=== PATIENT | female | born 1990 | race Asian ===

== ENCOUNTER 2020-09-06 17:38 | Outpatient (CLI) | payer OTHER | END 2020-09-06 17:39 | disposition home or self-care (01) | LOC: COV 17:38 | PROVIDERS: ATTEND Family Medicine | DX: Z20.822 Contact with and (suspected) exposure to COVID-19 (principal) ==

== ENCOUNTER 2022-04-27 23:01 | Emergency (ER) | payer OTHER ==
--- NOTE | 2022-04-27 23:39 | ED Physician Documentation ---
PD HPI DYSPNEA - Stated complaint Stated Complaint: SOA, CHEST PAIN - Chief complaint Chief Complaint: Resp - History obtained from History obtained from: Patient - Additional information Additional information: The patient comes to the emergency department with chief complaint of dyspnea for approximately the last week and a half. She states that she is also had pain between her shoulder blades. She states that all of it seems to be getting gradually worse. The patient was recently traveling in the [facility] and got back 1 week ago. She thinks that the shortness of breath started while she was there, though she was so busy and doing some is traveling that it is hard to tell for sure. The patient states that she stopped her control approximately 1 week into her [facility] trip. She states that she has never felt ill per se-no fevers, cough, body aches, or other signs of illness. She states that prior to her trip, she was working out approximately 1 hour a day at the gym. However, upon arriving home, she noticed her exercise tolerance had significantly decreased and that she could not get through a workout without getting severely short of breath. The patient states that today, she felt as though she was going to pass out and had to cut her workout short again. The patient denies any swelling or pain in her calves. She states that even just walking around makes her feel very short of breath now. She is otherwise very healthy. No other complaints at this time. Review of Systems Ten Systems: 10 systems reviewed and negative Constitutional: reports: Reviewed and negative Eyes: reports: Reviewed and negative Ears: reports: Reviewed and negative Nose: reports: Reviewed and negative Throat: reports: Reviewed and negative Cardiac: reports: Reviewed and negative Respiratory: reports: Dyspnea GI: reports: Reviewed and negative : reports: Reviewed and negative Skin: reports: Reviewed and negative Musculoskeletal: reports: Back pain Neurologic: reports: Reviewed and negative Psychiatric: reports: Reviewed and negative Endocrine: reports: Reviewed and negative Immunocompromised: reports: Reviewed and negative PD PAST MEDICAL HISTORY - Present Medications Home Medications: Ambulatory Orders Medication Instructions Recorded Confirmed Apixaban [Eliquis] 10 mg PO BID #200 tablet 04/28/22 - Allergies Allergies/Adverse Reactions: Allergies Allergy/AdvReac Type Severity Reaction Status Date / Time amoxicillin Allergy Hives Verified 04/27/22 23:06 - Social History Does the pt smoke?: No Smoking Status: Never smoker Does the pt drink ETOH?: Yes Does the pt have substance abuse?: No - Immunizations Immunizations are current?: Yes - POLST Patient has POLST: No PD ED PE NORMAL - Vitals Vital signs reviewed: Yes - General General: Alert and oriented X 3, No acute distress, Well developed/nourished - HEENT HEENT: Atraumatic, PERRL, EOMI, Moist mucous membranes - Neck Neck: Supple, no meningeal sign - Cardiac Cardiac: No murmur, Strong equal pulses, Other (Mild tachycardia. Regular rhythm.) - Respiratory Respiratory: No respiratory distress, Clear bilaterally - Abdomen Abdomen: Soft, Non tender, Non distended - Back Back: No spinal TTP, Other (No muscular tenderness.) - Derm Derm: Normal color, Warm and dry, No rash - Extremities Extremities: No deformity, No edema, No calf tenderness / cord - Neuro Neuro: Alert and oriented X 3 - Psych Psych: Normal mood, Normal affect Results - Vitals Vitals: Vital Signs - 24 hr 04/27/22 04/27/22 04/28/22 23:07 23:25 00:00 Temperature 36.5 C Heart Rate 100 104 H 96 Respiratory 16 19 13 Rate Blood Pressure 150/100 H 141/115 H 128/94 H O2 Saturation 96 99 96 04/28/22 04/28/22 04/28/22 00:35 01:46 03:02 Temperature Heart Rate 96 87 90 Respiratory 23 14 16 Rate Blood Pressure 115/92 H 130/101 H 140/103 H O2 Saturation 94 100 100 Oxygen O2 Source Room air - EKG (time done) 2341 Rate: Rate (enter#) (99) Rhythm: NSR Martell: Normal Intervals: Normal NC QRS: Normal Ischemia: Normal ST segments, Non specific changes Compare to prior EKG: Old EKG unavailable Computer interpretation: Agree with computer - Labs Labs: Laboratory Tests 04/27/22 04/27/22 04/27/22 23:35 23:35 23:35 WBC 10.2 RBC 4.73 Hgb 11.9 L Hct 37.5 MCV 79.3 L MCH 25.2 L MCHC 31.7 L RDW 13.2 Plt Count 264 MPV 9.5 Neut # (Auto) 5.8 Lymph # (Auto) 3.5 Glades # (Auto) 0.6 Eos # (Auto) 0.3 Baso # (Auto) 0.1 Absolute Nucleated RBC 0.00 Nucleated RBC % 0.0 PT 13.3 H INR 1.2 D-Dimer 1012.9 H Sodium 141 Potassium 3.5 Chloride 104 Carbon Dioxide 26 Anion Gap 11.0 BUN 13 Creatinine 0.9 Estimated GFR (MDRD) 73 L Glucose 116 H Calcium 9.2 Total Bilirubin 0.3 AST 31 ALT 27 Alkaline Phosphatase 70 Total Protein 7.6 Albumin 4.1 Globulin 3.5 Albumin/Globulin Ratio 1.2 Lipase 37 Serum HCG, Qual Nasal Adenovirus (PCR) Nasal B. parapertussis DNA (PCR) Nasal Coronavir 229E PCR Nasal Coronavir HKU1 PCR Nasal Coronavir NL63 PCR Nasal Coronavir OC43 PCR Nasal Enterovir/Rhinovir PCR Nasal Influenza B PCR Nasal Influenza A PCR Nasal Parainfluen 1 PCR Nasal Parainfluen 2 PCR Nasal Parainfluen 3 PCR Nasal Parainfluen 4 PCR Nasal RSV (PCR) Nasal B.pertussis DNA PCR Nasal C.pneumoniae (PCR) Herve Human Metapneumo PCR Nasal M.pneumoniae (PCR) Nasal SARS-CoV-2 (PCR) 04/27/22 04/27/22 23:35 23:50 WBC RBC Hgb Hct MCV MCH MCHC RDW Plt Count MPV Neut # (Auto) Lymph # (Auto) Glades # (Auto) Eos # (Auto) Baso # (Auto) Absolute Nucleated RBC Nucleated RBC % PT INR D-Dimer Sodium Potassium Chloride Carbon Dioxide Anion Gap BUN Creatinine Estimated GFR (MDRD) Glucose Calcium Total Bilirubin AST ALT Alkaline Phosphatase Total Protein Albumin Globulin Albumin/Globulin Ratio Lipase Serum HCG, Qual NEGATIVE Nasal Adenovirus (PCR) NOT DETECTED Nasal B. parapertussis DNA (PCR) NOT DETECTED Nasal Coronavir 229E PCR NOT DETECTED Nasal Coronavir HKU1 PCR NOT DETECTED Nasal Coronavir NL63 PCR NOT DETECTED Nasal Coronavir OC43 PCR NOT DETECTED Nasal Enterovir/Rhinovir PCR NOT DETECTED Nasal Influenza B PCR NOT DETECTED Nasal Influenza A PCR NOT DETECTED Nasal Parainfluen 1 PCR NOT DETECTED Nasal Parainfluen 2 PCR NOT DETECTED Nasal Parainfluen 3 PCR NOT DETECTED Nasal Parainfluen 4 PCR NOT DETECTED Nasal RSV (PCR) NOT DETECTED Nasal B.pertussis DNA PCR NOT DETECTED Nasal C.pneumoniae (PCR) NOT DETECTED Herve Human Metapneumo PCR NOT DETECTED Nasal M.pneumoniae (PCR) NOT DETECTED Nasal SARS-CoV-2 (PCR) NOT DETECTED - Rads (name of study) CTA thorax Radiology: Final report received, EMP read indepedently, See rad report (Mul tiple pulmonary emboli involving all lobes of both lungs, segmental and subsegmental he) PD MEDICAL DECISION MAKING - ED course Complexity details: reviewed results, re-evaluated patient, considered differential, d/w patient ED course: The patient overall appeared well, but she was mildly tachycardic and I was concerned, given her history of recent cessation of control and recent long travel with onset of symptoms after at least 1 leg of long travel, that the patient may have a pulmonary embolism. She did not have any symptoms whatsoever of DVT, but also had not felt ill and had no other plausible explanation for her symptoms at this point in time. Her oxygen saturation was generally in the upper 90s, though initially upon arriving in the room, she was briefly in the upper 80s with a good waveform. However, this did resolve very quickly. Her blood pressure was actually slightly elevated. She was worked up with labs, EKG, and ultimately, CT angiogram of the chest. Labs showed a significantly elevated D-dimer over 1000. EKG showed T wave inversions in lead III And aVF. CTA of the chest showed multiple PEs scattered throughout all lobes of both lungs., Without right heart strain or dilatation of the pulmonary artery. No infiltrates or infarction were noted. I relayed this information to the patient, who was feeling fairly well at this point. Her oxygen saturation at rest in bed on room air was 98 to 100%. Her heart rate was in the low 90s. The patient was given an IV dose of heparin pulmonary embolism dosing. I did get the patient up for a walk and she was able to walk unaided to the far end of the nursing station, and back, approximately 60 feet. She appeared very comfortable doing this and was without any visible dyspnea. Her oxygen saturation did drop down to 91% after the walk but rebounded fairly quickly to 95% on room air. Her heart rate did not rise above 100. I felt the patient was stable for discharge for outpatient anticoagulation therapy and follow-up. I have had an extensive discussion with both the patient and her sister regarding this. We have discussed the importance of staying on the anticoagulation, the importance of following up as an outpatient, and the usual indications for return. Departure - Departure Disposition: 01 Home, Self Care Clinical Impression: Pulmonary embolism Qualifiers: Pulmonary embolism type: multiple subsegmental (without acute cor pulmonale) Qualified Code(s): I26.94 - Multiple subsegmental pulmonary emboli without acute cor pulmonale Condition: Stable Instructions: Embolism Pulmonary Dc Prescriptions: Apixaban [Eliquis] 10 mg PO BID #200 tablet Comments: The CT scan of your chest showed multiple pulmonary emboli that have traveled to all segments of your lungs. Fortunately, this has not caused any of your lung tissue, nor has it caused strain to the right side of your heart. Your oxygen saturation is very good at rest, and you have been able to walk in the emergency department without becoming severely winded or without your oxygen d ropping very low or your heart rate going very high. As such, you do meet criteria for treatment initiation at home. You have been given an IV dose of blood thinner here in the emergency department will need to start your oral blood thinner first thing in the morning. Your prescription has been electronically transmitted to [facility] pharmacy in [place] at your request. Please follow-up as soon as possible to establish care with a primary care physician so that you can continue to be monitored for this condition. If your symptoms significantly worsen, you should return to the emergency department immediately. Discharge Date/Time: 04/28/22 03:13
--- OUTSIDE RECORDS SUMMARY | 2022-04-27 23:42 | EXTERNAL MEDICAL SUMMARY RPT | Continuity of Care Document ---
:1990 Author Organization [facility] Address [address] [place] [address] Phone Allergies No information. Encounters No information. Functional Status No information. Immunizations No information. Medications No information. Problems No information. Procedures No information. Results/Labs test date author facility value unit interpret ation Result panel 1 (unknown) (no (unknown) (unknown) (no value) (units (unk nown) date) unknown) (unknown) (no (unknown) (unknown) Date of (units (unkno wn) date) Service: unknown) 01/26/22 (unknown) (no (unknown) (unknown) [facility] (units (unknown) date) [address] [place] [address] unknown) [place] [address] (unknown) (no (unknown) (unknown) Pulmonary (units (unkn own) date) Function Test unknown) (unknown) (no (unknown) (unknown) (no value) (units (unk nown) date) unknown) (unknown) (no (unknown) (unknown) 0359 (units (unkno wn) date) unknown) (unknown) (no (unknown) (unknown) Age/Sex: 31 / F (units (unknown) date) unknown) (unknown) (no (unknown) (unknown) : 1990 (units (unknown) date) unknown) Acct:[id number] (unknown) (no (unknown) (unknown) Date Patient (units (u nknown) date) Seen: 01/26/22 unknown) (unknown) (no (unknown) (unknown) Interpretation: (units (unknown) date) unknown) (unknown) (no (unknown) (unknown) Patient: (units (unkno wn) date) Kisha Spivey unknown) MR#: [id number] (unknown) (no (unknown) (unknown) Provider: (units (unkn own) date) Manuel Hughes MD unknown) (unknown) (no (unknown) (unknown) Pulmonary (units (unkn own) date) Function Test unknown) (unknown) (no (unknown) (unknown) Referral + (units (unk nown) date) Results unknown) (unknown) (no (unknown) (unknown) Requesting (units (unk nown) date) provider: Carlos Enrique unknown) Malachi May (unknown) (no (unknown) (unknown) Results: (units (unkno wn) date) unknown) (unknown) (no (unknown) (unknown) Signed (units (unkno wn) date) By:<Electronical unknown) ly signed by Manuel Hughes MD>01/30/22 1413 (unknown) (no (unknown) (unknown) The FEV1 was (units (u nknown) date) measured at 2.82 unknown) L which is 99% of predicted. (unknown) (no (unknown) (unknown) The FEV1/FVC (units (u nknown) date) ratio was 92 unknown) which is 109% of predicted. (unknown) (no (unknown) (unknown) The spirometry (units (unknown) date) demonstrates an unknown) FVC of 3.07 m which is 81% of predicted. (unknown) (no (unknown) (unknown) This study (units (unk nown) date) demonstrates unknown) normal forced spirometry Social History No information. Vital Signs No information.
[2022-04-27 23:45] LABS: BASOPHILS # (AUTO) 0.1 10^3/uL (0.0-0.1); BASOPHILS % (AUTO) 0.8 %; EOSINOPHILS # (AUTO) 0.3 10^3/uL (0.0-0.7); EOSINOPHILS % (AUTO) 2.9 %; HCT - HEMATOCRIT 37.5 % (37.0-47.0); HGB - HEMOGLOBIN 11.9 g/dL (12.0-16.0); LYMPHOCYTES # (AUTO) 3.5 10^3/uL (1.5-3.5); LYMPHOCYTES % (AUTO) 33.9 %; MEAN CORPUSCULAR HEMOGLOBIN 25.2 pg (27.0-31.0); MEAN CORPUSCULAR HGB CONC 31.7 g/dL (32.0-36.0); MEAN CORPUSCULAR VOLUME 79.3 fL (81.0-99.0); MEAN PLATELET VOLUME 9.5 fL (7.9-10.8); MONOCYTES # (AUTO) 0.6 10^3/uL (0.0-1.0); MONOCYTES % (AUTO) 5.6 %; NEUTROPHILS # (AUTO) 5.8 10^3/uL (1.5-6.6); NEUTROPHILS % (AUTO) 56.6 %; PLT - PLATELET COUNT 264 10^3/uL (130-450); RED BLOOD COUNT 4.73 10^6/uL (4.20-5.40); RED CELL DISTRIBUTION WIDTH 13.2 % (12.0-15.0); WHITE BLOOD COUNT 10.2 x10^3/uL (4.8-10.8)
[2022-04-27 23:59] LABS: INR 1.2 (0.8-1.2); PT - PROTHROMBIN TIME 13.3 secs (9.9-12.6)
[2022-04-28] LABS: ALBUMIN 4.1 g/dL (3.2-5.5); ALBUMIN/GLOBULIN RATIO 1.2 (1.0-2.2); BILIRUBIN,TOTAL 0.3 mg/dL (0.2-1.0); CALCIUM 9.2 mg/dL (8.5-10.3); CREATININE 0.9 mg/dL (0.4-1.0); POTASSIUM 3.5 mmol/L (3.5-5.0); TOTAL PROTEIN 7.6 g/dL (6.7-8.2)
[2022-04-28 00:05] LABS: D-DIMER 1012.9 ng/mL (200.0-255.0)
[2022-04-28 00:08] LABS: HCG,QUALITATIVE BLOOD NEGATIVE
[2022-04-28 00:50] LABS: B. PARAPERTUSSIS- RESP PCR PAN NOT DETECTED; B. PERTUSSIS- RESP PCR PANEL NOT DETECTED; C. PNEUMONIAE- RESP PCR PANEL NOT DETECTED; CORONAVIRUS 229E-RESP PCR NOT DETECTED; CORONAVIRUS HKU1-RESP PCR NOT DETECTED; CORONAVIRUS NL63-RESP PCR NOT DETECTED; CORONAVIRUS OC43-RESP PCR NOT DETECTED; HUMAN METAPNEUMOVIRUS NOT DETECTED; INFLUENZA A- RESP PCR PANEL NOT DETECTED; INFLUENZA B - RESP PCR PANEL NOT DETECTED; M. PNEUMONIAE- RESP PCR PANEL NOT DETECTED; PARAINFLUENZA VIRUS 1 NOT DETECTED; PARAINFLUENZA VIRUS 2 NOT DETECTED; PARAINFLUENZA VIRUS 3 NOT DETECTED; PARAINFLUENZA VIRUS 4 NOT DETECTED; RHINOVIRUS/ENTEROVIRUS NOT DETECTED; RSV- RESP PCR PANEL NOT DETECTED; SARS-CoV-2 -RESP PCR PANEL NOT DETECTED
--- NOTE | 2022-04-28 01:52 | CT Report ---
PROCEDURE: ANGIO CHEST W/WO INDICATIONS: back pain, tachycardia, dyspnea, travel, elev d-DM CONTRAST: IV CONTRAST: Optiray 320 ml: 100 PO CONTRAST: *NO PO CONTRAST TECHNIQUE: After the administration of intravenous contrast, 2 mm axial images were acquired from the pulmonary apices to the posterior costophrenic angles during the arterial phase. In addition, 1 mm lung kernel and 5 mm soft tissue kernel reconstructions were performed. 3-dimensional coronal oblique maximum int ensity projection (MIP) reformats, 8 mm axial MIP, and 5 mm coronal and sagittal MPR reformats were t hen performed through the thorax. For radiation dose reduction, the following was used: automated exp osure control, adjustment of mA and/or kV according to patient size. COMPARISON: None. FINDINGS: Image quality: Excellent. Pulmonary arteries: Pulmonary arteries demonstrate bilateral filling defects involving segmental and subsegmental pulmonary arteries involving all lobes. The main pulmonary artery is within normal size limits. No definite leftward deviation of the interventricular septum. Lower Neck: No lymphadenopathy by size criteria. Thyroid: Visualized thyroid demonstrates no discrete nodules. Axillae: No lymphadenopathy by size criteria. Chest Wall: Unremarkable. Bones: Visualized osseous structures demonstrate no suspicious lesions. Lungs and Airways: No acute consolidation. There is minimal dependent atelectasis. No suspicious pu lmonary nodules. The trachea and central airways are patent. Pleura: No pneumothorax or pleural effusions. Heart: Heart size is normal. No pericardial effusion. Thoracic Vessels: The aorta and pulmonary arteries are normal in size. Mediastinum and Herlinda: No lymphadenopathy by size criteria. Esophagus: No wall thickening. No hiatal hernia. Abdomen: Visualized upper abdominal solid organs appear normal in the early arterial phase of enhanc ement. IMPRESSION: 1. Bilateral pulmonary embolism demonstrated within segmental and subsegmental pulmonary arteries wit hin all lobes. No definite evidence of right heart strain. Findings discussed Dr. Whitfield on 04/28/2022 at 1:48 AM. Reviewed by: Giuseppe Ortega MD on 04/28/2022 1:51 AM PDT Approved by: Giuseppe Ortega MD on 04/28/2022 1:51 AM PDT Station ID: [id number]
[2022-04-28 03:03] VITALS: BP 140/103
== END 2022-04-28 03:13 | disposition home or self-care (01) ==
LOC: ED 23:01
DX: I26.94 Multiple subsegmental thrombotic pulmonary emboli without acute cor pulmonale (principal); Z20.822 Contact with and (suspected) exposure to COVID-19
CPT/HCPCS: 36415; 71275; 80053; 83690; 84703; 85025; 85379; 85610; 87633; 93005; 96374; 99284; Q9967

== ENCOUNTER 2022-05-11 15:01 | Outpatient (CLI) | payer OTHER ==
--- NOTE | 2022-05-11 17:53 | Ultrasound Report ---
PROCEDURE: Duplex Ext Veins Right INDICATIONS: SWELLING OF RIGHT ARM TECHNIQUE: Real-time imaging, as well as color and pulse Doppler interrogation, were performed of the lower extr emity deep veins from the inguinal ligament to the popliteal fossa. COMPARISON: CT pulmonary angiogram 04/28/2022. FINDINGS: There is nonocclusive thrombus in the subclavian vein, axillary vein, brachial vein. The superficial venous system basilic and cephalic veins are patent. The jugular vein is patent. No conspicuous DVT i n the right innominate vein. IMPRESSION: Positive exam. Nonocclusive DVT in the right upper extremity. Preliminary results were conveyed to Damien SHAW by the steam hammer operator at 1550 hours on . Reviewed by: Ori Barnhart MD on 05/11/2022 5:52 PM PDT Approved by: Ori Barnhart MD on 05/11/2022 5:52 PM PDT Station ID: [id number]
== END 2022-05-11 15:02 | disposition home or self-care (01) ==
LOC: DI 15:01
PROVIDERS: ATTEND Registered Nurse
DX: I82.621 Acute embolism and thrombosis of deep veins of right upper extremity (principal); Z86.711 Personal history of pulmonary embolism; Z79.01 Long term (current) use of anticoagulants

== ENCOUNTER 2022-05-14 20:31 | Emergency (ER) | payer OTHER ==
--- OUTSIDE RECORDS SUMMARY | 2022-05-14 20:41 | EXTERNAL MEDICAL SUMMARY RPT | Continuity of Care Document ---
:1990 Author Organization [facility] Address [address] [place] [address] Phone Care Team Providers Name Role Phone Unavailable Unavailable Unavailable Marana Security Assurance Specialist,Primary Teaching Assistant Unavailable Unavailable [facility], Referrals Unavailable Unavailable [facility], Referrals Unavailable Unavailable Allergies and Intolerances date description facility type (no date) AMOXICILLIN All (unknown) Encounters No information. Functional Status No information. Immunizations No information. Medications date description facility [id number]+0000 apixaban All [id number]+0000 apixaban All [id number]+0000 apixaban All [id number]+0000 apixaban All [id number]+0000 apixaban All [id number]+0000 apixaban All [id number]+0000 apixaban All [id number]+0000 apixaban All [id number]+0000 apixaban All [id number]+0000 apixaban All [id number]+0000 apixaban All [id number]+0000 apixaban All Problems No information. Procedures date description facility [id number] Visit Code Hold All [id number]+0000 Visit Code Hold All [id number]+0000 Visit Code Hold All Results/Labs No information. Social History date description facility [id number]+0000 Unknown if ever smoked All [id number]+0000 Unknown if ever smoked All [id number]+0000 Unknown if ever smoked All Vital Signs date measurement value units [id number]+0000 BMI BMI 20.16 kg/m2 42543264975610+0000 BP_diastolic BP_diastolic 84 mmHg 35010843301696+0000 BP_systolic BP_systolic 122 mmHg 66525448045947+0000 heart_rate heart_rate 110 /min 81852954447673+0000 height_metric height_metric 162.56 cm 57298803015482+0000 height_standard height_standard 64 in [id number]+0000 respiration_rate respiration_rate 18 /min 95890402610156+0000 temperature_metric temperature_metric 36.72 C 48443794545911+0000 temperature_standard temperature_standard 9 8.1 F 14622161495851+0000 weight_metric weight_metric 53.07 kg +0000 weight_standard weight_standard 117 lb
[2022-05-14] MEDS ORDERED: SODIUM CHLORIDE 0.9% 1,000 ML IV STA (21:10)
[2022-05-14] MEDS ORDERED: KETOROLAC 15 MG/ML VIAL IVP STA (21:10)
[2022-05-14] MEDS ORDERED: MORPHINE 2 MG/ML CARPUJECT IVP STA (21:10)
[2022-05-14 21:26] LABS: BASOPHILS # (AUTO) 0.1 10^3/uL (0.0-0.1); BASOPHILS % (AUTO) 1.1 %; EOSINOPHILS # (AUTO) 0.3 10^3/uL (0.0-0.7); EOSINOPHILS % (AUTO) 2.7 %; HCT - HEMATOCRIT 40.7 % (37.0-47.0); HGB - HEMOGLOBIN 13.3 g/dL (12.0-16.0); LYMPHOCYTES # (AUTO) 3.5 10^3/uL (1.5-3.5); LYMPHOCYTES % (AUTO) 29.4 %; MEAN CORPUSCULAR HEMOGLOBIN 25.4 pg (27.0-31.0); MEAN CORPUSCULAR HGB CONC 32.7 g/dL (32.0-36.0); MEAN CORPUSCULAR VOLUME 77.8 fL (81.0-99.0); MONOCYTES # (AUTO) 0.6 10^3/uL (0.0-1.0); MONOCYTES % (AUTO) 4.9 %; NEUTROPHILS # (AUTO) 7.2 10^3/uL (1.5-6.6); NEUTROPHILS % (AUTO) 61.7 %; PLT - PLATELET COUNT 284 10^3/uL (130-450); RED BLOOD COUNT 5.23 10^6/uL (4.20-5.40); RED CELL DISTRIBUTION WIDTH 13.8 % (12.0-15.0); WHITE BLOOD COUNT 11.7 x10^3/uL (4.8-10.8)
[2022-05-14 21:46] LABS: ALBUMIN 4.2 g/dL (3.2-5.5); ALBUMIN/GLOBULIN RATIO 1.1 (1.0-2.2); BILIRUBIN,TOTAL 0.4 mg/dL (0.2-1.0); CALCIUM 9.3 mg/dL (8.5-10.3); CREATININE 0.7 mg/dL (0.4-1.0); POTASSIUM 3.8 mmol/L (3.5-5.0)
[2022-05-14] MEDS ORDERED: ONDANSETRON 4 MG/2 ML VIAL IVP STA ×2 (23:04→23:47)
--- NOTE | 2022-05-14 23:29 | CT Report ---
PROCEDURE: CHEST W INDICATIONS: acute chest pain and LUQ. on DOAC for PEs CONTRAST: IV CONTRAST: Optiray 320 ml: 100 PO CONTRAST: *NO PO CONTRAST TECHNIQUE: After the administration of intravenous contrast, 1 mm axial images were acquired from the pulmonary apices through the posterior costophrenic angles. Axial 5 mm soft tissue kernel reconstructions were performed as well as 8 mm axial MIP and coronal and sagittal 5 mm reformations. For radiation dose reduction, the following was used: automated exposure control, adjustment of mA and/or kV according to patient size. COMPARISON: CTA chest 04/28/2022. FINDINGS: Image quality: Excellent. Lower Neck: No lymphadenopathy by size criteria. Thyroid: Visualized thyroid demonstrates no discrete nodules. Axillae: No lymphadenopathy by size criteria. Chest Wall: Unremarkable. Bones: Visualized osseous structures demonstrate no suspicious lesions. Lungs and Airways: No acute consolidation. Within the posterior lateral right lower lobe there is a n indistinct subpleural region of groundglass opacity which may represent atelectasis or possible sma ll pulmonary infarct. Mild dependent atelectasis is also demonstrated elsewhere in the lower lobes. T he trachea and central airways are patent. Pleura: No pneumothorax or pleural effusions. Heart: Heart size is normal. No pericardial effusion. Thoracic Vessels: The pulmonary arteries are enlarged, measuring up to 3.2 cm. Multiple filling defec ts are redemonstrated within bilateral segmental pulmonary arteries consistent with pulmonary embolis m, with evaluation limited on the current study due to nonangiographic technique. There is increased proximal extension of thrombus within a right middle lobe segmental pulmonary artery medially as seen on series 2 image 31 of a small amount of thrombus extending into the right lobar pulmonary artery. The thrombus within the remaining visualized segmental pulmonary arteries appears similar in extent c ompared to the prior study. There is slight leftward deviation of the interventricular septum suggest ing possible right heart strain. Mediastinum and Herlinda: No lymphadenopathy by size criteria. Esophagus: No wall thickening. No hiatal hernia. Abdomen: Visualized upper abdomen demonstrates 2 hypervascular peripheral oval lesions within the an terior left hepatic lobe measuring up to 1.1 cm in segment 4A and 1.3 cm in segment 2. The findings a re incompletely evaluated on the current study but are suggestive of a flash filling hemangiomas. The se were not visualized on the prior study due to the phase of imaging. IMPRESSION: 1. Bilateral pulmonary embolism redemonstrated, with evaluation limited on the current nonangiographi c technique study. However, there is increased proximal extent of thrombus in a medial right middle l obe segmental pulmonary artery compared to the prior study. 2. New mild leftward deviation of the interventricular septum as well as enlargement of the main pulm onary artery may reflect right heart strain. Recommend correlation clinically. 3. Small peripheral region of subpleural groundglass opacity posterolaterally in the right lower lobe may represent a small pulmonary infarct versus atelectasis. 4. Small hypervascular lesions within the left hepatic lobe in the visualized liver are incompletely evaluated on the current study but suggestive of a flash filling hemangiomas. Reviewed by: Giuseppe Ortega MD on 05/14/2022 11:28 PM PDT Approved by: Giuseppe Ortega MD on 05/14/2022 11:28 PM PDT Station ID: [id number]
--- NOTE | 2022-05-14 23:37 | CT Report ---
PROCEDURE: Abdomen/Pelvis W INDICATIONS: upper abd pain, on DOAC CONTRAST: IV CONTRAST: Optiray 320 ml: 100 PO CONTRAST: *NO PO CONTRAST TECHNIQUE: After the administration of intravenous contrast, 5 mm thick sections acquired from the diaphragms to the symphysis. 5 mm thick coronal and sagittal reformats were acquired. For radiation dose reducti on, the following was used: automated exposure control, adjustment of mA and/or kV according to sonia ent size. COMPARISON: Concurrent chest CT. FINDINGS: Image quality: Excellent. Lung bases:There is a small peripheral region of subpleural groundglass opacity in the right lower l obe as seen on the concurrent CT of the chest. Heart: Heart is normal in size. ABDOMEN: Liver:Within the left hepatic lobe, there are 2 peripheral oval hypervascular lesions measuring up t o 1.0 cm in segment 4A and 1.3 cm in segment 2. Gallbladder: Within normal limits without calcified gallstones. Biliary ducts: No biliary ductal dilatation. Pancreas: Unremarkable. Spleen: Normal in size. Adrenal Glands: No adrenal nodules. Kidneys and Ureters: No hydronephrosis. Stomach and Bowel: Stomach, small bowel loops, and colon are normal in caliber and wall thickness. T he appendix is normal in appearance. Peritoneum:There is a small amount of free fluid in the pelvis which appears within physiologic limi ts. No free air. Ventral Wall: No hernia. Abdominal Nodes: No retroperitoneal or mesenteric adenopathy by size criteria. Vessels: Aorta and inferior vena cava are normal in size. PELVIS: Pelvic Organs: There is a peripherally enhancing cyst within the right ovary measuring up to 2.2 cm which is nonspecific but likely represents a physiologic corpus luteal cyst. Bladder: Unremarkable. Pelvic Nodes: No enlarged lymph nodes. Miscellaneous: No inguinal hernias are seen. Bones: Visualized osseous structures demonstrate no suspicious focal lesions. IMPRESSION: 1. No definite acute intra-abdominal abnormality. 2. Small hypervascular lesions within the left hepatic lobe are incompletely characterized on the cur rent study but are suggestive of a flash filling hemangiomas. Further evaluation may be obtained with a nonemergent liver protocol MRI or CT if clinically indicated. 3. Probable physiologic cyst in the right ovary. Reviewed by: Giuseppe Ortega MD on 05/14/2022 11:36 PM PDT Approved by: Giuseppe Ortega MD on 05/14/2022 11:36 PM PDT Station ID: [id number]
[2022-05-14] MEDS ORDERED: HYDROcod/ACET 5/325 Prepack 4 PO STA (23:47)
[2022-05-14] MEDS ORDERED: ONDANSETRON ODT 4 MG Prepack 2 TL PRN (23:47)
--- NOTE | 2022-05-14 23:48 | ED Physician Documentation ---
PD HPI CHEST PAIN - Stated complaint Stated Complaint: SOA,RT ARM PX - Chief complaint Chief Complaint: Resp - History obtained from History obtained from: Patient - History of Present Illness Timing - onset: Today Timing - onset during: Light activity Timing - details: Gradual onset, Still present (feeling dyspnea and fatigue worse today. Having left chest to LUQ abd pain, worse with position and deep breathing. Recently seen for PEs and right arm DVTs. On DOAC the past week. Has appt with [employer] tomorrow in office.), Waxing and waning Quality: Aching, Sharp, Pain Location: Left chest Radiation: Abdominal (left upper, with feeling of lump in left upper abdomen.) Improved by: Rest Worsened by: Inspiration, Movement. No: Eating, Palpation Associated symptoms: Shortness of air, Feeling faint / dizzy. No: Nausea, Palpitations Similar symptoms before: Diagnosis (recent dx of PEs with some of the dyspnea and chest pain, but this has worsened today) Recently seen: Clinic, Emergency Dept Review of Systems Constitutional: denies: Fever, Chills PD PAST MEDICAL HISTORY - Past Surgical History Past Surgical History: Yes HEENT: Other - Present Medications Home Medications: Ambulatory Orders Medication Instructions Recorded Confirmed Apixaban [Eliquis] 10 mg PO BID #200 tablet 04/28/22 05/14/22 HYDROcod/ACETAM 5/325 [[place] 5/325] 1 ea PO Q6H PRN #18 tablet 05/14/22 Ondansetron Odt [Zofran] 4 mg TL Q6H PRN #20 tablet 05/14/22 - Allergies Allergies/Adverse Reactions: Allergies Allergy/AdvReac Type Severity Reaction Status Date / Time amoxicillin Allergy Hives Verified 05/14/22 20:39 - Social History Does the pt smoke?: No Smoking Status: Never smoker Does the pt drink ETOH?: Yes Does the pt have substance abuse?: No - Immunizations Immunizations are current?: Yes - POLST Patient has POLST: No PD ED PE NORMAL - Vitals Vital signs reviewed: Yes - General General: Alert and oriented X 3, Well developed/nourished - HEENT HEENT: Pharynx benign - Neck Neck: Supple, no meningeal sign, No adenopathy - Cardiac Cardiac: RRR, No murmur - Respiratory Respiratory: Clear bilaterally - Abdomen Abdomen: Soft, Non tender, Other (tender LUQ abdomen without mass; mild guarding. Lower costal margin also tender. No rash nor sores. ) - Derm Derm: Normal color, Warm and dry, No rash - Extremities Extremities: No edema, No calf tenderness / cord, Other (right arm without edema. Good color and cap refill. ) - Neuro Neuro: Alert and oriented X 3, No motor deficit, No sensory deficit, Normal sp eech Results - Vitals Vitals: Vital Signs - 24 hr 05/14/22 05/15/22 20:33 00:04 Temperature 36.6 C Heart Rate 115 H 96 Respiratory 18 20 Rate Blood Pressure 111/90 H 115/85 H O2 Saturation 94 98 Oxygen O2 Source Room air - Labs Labs: Laboratory Tests 05/14/22 05/14/22 05/14/22 21:21 21:21 21:21 WBC 11.7 H RBC 5.23 Hgb 13.3 Hct 40.7 MCV 77.8 L MCH 25.4 L MCHC 32.7 RDW 13.8 Plt Count 284 MPV 10.0 Neut # (Auto) 7.2 H Lymph # (Auto) 3.5 Sharp # (Auto) 0.6 Eos # (Auto) 0.3 Baso # (Auto) 0.1 Absolute Nucleated RBC 0.00 Nucleated RBC % 0.0 Sodium 140 Potassium 3.8 Chloride 108 Carbon Dioxide 23 Anion Gap 9.0 BUN 12 Creatinine 0.7 Estimated GFR (MDRD) 97 Glucose 106 H Calcium 9.3 Total Bilirubin 0.4 AST 25 ALT 20 Alkaline Phosphatase 69 Troponin I High Sens 19.7 H* B-Natriuretic Peptide Total Protein 8.0 Albumin 4.2 Globulin 3.8 Albumin/Globulin Ratio 1.1 Lipase 37 05/14/22 21:21 WBC RBC Hgb Hct MCV MCH MCHC RDW Plt Count MPV Neut # (Auto) Lymph # (Auto) Sharp # (Auto) Eos # (Auto) Baso # (Auto) Absolute Nucleated RBC Nucleated RBC % Sodium Potassium Chloride Carbon Dioxide Anion Gap BUN Creatinine Estimated GFR (MDRD) Glucose Calcium Total Bilirubin AST ALT Alkaline Phosphatase Troponin I High Sens B-Natriuretic Peptide 584 H Total Protein Albumin Globulin Albumin/Globulin Ratio Lipase - Rads (name of study) chest CT with Radiology: Prelim report reviewed, Discussed with rads (no change in embolic patter from prior. No other areas acute injuries. Mild right heart strain.), See rad report PD MEDICAL DECISION MAKING - ED course Complexity details: reviewed results (no change in embolic pattern. No focal bleeding nor mass. No effusion. ), re-evaluated patient (pain improved with IV meds. Feels more comfortable. ), considered differential (concern for vascular bleeding, on DOAC, such as aortic/splenic, or pleural effusion, lung bleeding, versus pleuritic pain of PE. ), d/w patient Departure - Departure Disposition: 01 Home, Self Care Clinical Impression: Pleuritic chest pain, Pulmonary embolism and infarction Condition: Stable Record reviewed to determine appropriate education?: Yes Prescriptions: HYDROcod/ACETAM 5/325 [[place] 5/325] 1 ea PO Q6H PRN #18 tablet PRN Reason: Pain Ondansetron Odt [Zofran] 4 mg TL Q6H PRN #20 tablet PRN Reason: Nausea / Vomiting Comments: Your CT scan showed similar amount of clot in the pulmonary vessels compared to the recent study. The scan was done to also ensure no signs of localized bleeding etc. There was no signs of collapsed lung, bleeding within the lung, nor any upper abdominal organ problems such as splenic bleeding etc. Presume the pain you are having is an inflammatory response on the lung related to the blood clots causing a pleurisy pain. Continue with your current medication. Add Tylenol 500 mg 4 times daily regularly. To that add hydrocodone/acetaminophen every 6 hours if needed for worse pain. 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 Presumably they will do an echocardiogram to look for evidence of heart strain but I would defer judgment to them. Your blood test here as well as a CT scan suggested some mild heart strain with an elevation of the BNP to 584. I sent your prescriptions to [facility] pharmacy. I am prescribing a short course of narcotic pain medication for you. These are potentially dangerous and addictive medications that should be used carefully. These medications may constipate you. Take an [id number] stool softener such as docusate twice daily with plenty of water while taking these medications. If you go 24 hours without a bowel movement, take [id number] MiraLAX, per package instructions. Do not drink or drive while taking these medications. If you received narcotic or sedating medications while in the emergency department do not drive for 24 hours. Store this medication in a safe, secure place and out of reach of children. It is a violation of federal law to give or sell this medication to another person or to use in a manner other than prescribed. The ED will not refill narcotic prescriptions, including prescriptions lost or stolen. You can dispose of unwanted medications at the [facility]'s office or at several pharmacies such as [facility]. Discharge Date/Time: 05/15/22 00:18
[2022-05-15 00:06] VITALS: BP 115/85
== END 2022-05-15 00:18 | disposition home or self-care (01) ==
LOC: ED 20:31
DX: I26.99 Other pulmonary embolism without acute cor pulmonale (principal); Z79.01 Long term (current) use of anticoagulants
CPT/HCPCS: 36415; 71260; 74177; 80053; 83690; 83880; 84484; 85025; 96374; 96375; 96376; 99284; Q9967